=== PATIENT | female | born 1985 | race Caucasian/White ===

== ENCOUNTER 2018-06-05 14:37 | Outpatient (CLI) | payer OTHER, MEDICAID ==
[~2018-06-05] VITALS: Ht 158.8 cm; Wt 81.6 kg
[2018-06-05 15:00] VITALS: BP 116/76; Ht 158.8 cm; Wt 81.6 kg
== END 2018-06-05 17:00 | disposition home or self-care (01) ==
LOC: UNDOADMIN 14:37 → OB 14:37 → L&D 14:37 → OB 14:37 → L&D 17:00 → UNDODISIN 17:00 → EDSTATUS 06-19 08:47
PROVIDERS: ATTEND Obstetrics & Gynecology
DX: O47.1 False labor at or after 37 completed weeks of gestation (principal); Z3A.38 38 weeks gestation of pregnancy
CPT/HCPCS: 59025; 99213

== ENCOUNTER → 2018-06-05 | Outpatient (CLI) | payer OTHER, MEDICAID ==
[2017-03-04 14:50] VITALS: BMI 32.9
[~2018-06-05] MED LIST: ALB18R INH; CALC-515 PO; DIPH-741 PO; DOCU-416 PO; HYDR2TAB74 PO; IBUP800T37 PO; PANT20TA27 PO; PANT40TA65 PO; PREN-127 PO; PREN-148 PO; RANI-318 PO
--- NOTE | 2018-06-05 14:45 | RADIOLOGY IMAGING REPORT ---
FACILITY: [facility] PATIENT NAME: Elaine Manrique : 1985 MR: [id number] V: [id number] EXAM DATE: ORDERING PHYSICIAN: JOSE COELHO TECHNOLOGIST: Location: [facility] [place] Patient: Elaine Manrique : 1985 Visit/Account:[id number] Date of Sevice: 06/05/2018 EXAMINATION: Biophysical Profile COMPARISON: None. HISTORY: Decreased movement. AGE: 38 weeks 0 days FINDINGS: Standard transabdominal ultrasound for biophysical profile was performed. Presentation: Cephalic Placenta: Fundal and to the maternal right. heart rate: 120 bpm Amniotic fluid index: 13.3 cm Largest fluid pocket: 6.6 cm Biophysical profile: breathing movement: 2/2 Gross body movement: 0/2 tone: 2/2 Amniotic fluid volume: 2/2 Total score: 6/8 IMPRESSION: 1. Biophysical profile score: 6/8 2. Amniotic fluid index: 13.3 cm 3. heart rate: 120 bpm Results were discussed with JOSE COELHO at 06/05/2018 2:34 PM. Report Dictated By: Germain Frazier MD at 06/05/2018 2:30 PM Report E-Signed By: Germain Frazier MD at 06/05/2018 2:39 PM WSN:[id number]
== END ==
LOC: US 13:03
PROVIDERS: ATTEND Obstetrics & Gynecology
DX: O36.8130 Decreased fetal movements, third trimester, not applicable or unspecified (principal); Z3A.38 38 weeks gestation of pregnancy
CPT/HCPCS: 76819

== ENCOUNTER 2018-06-11 21:06 | Outpatient (CLI) | payer OTHER, MEDICAID ==
[~2018-06-11] VITALS: Ht 160 cm; Wt 81.6 kg
[2018-06-11] MEDS ORDERED: APAP/HYDROCODONE 325/5 TAB PO PRN (22:05)
[2018-06-12 00:38] VITALS: BP 116/69; Ht 160 cm; Wt 81.6 kg
== END 2018-06-11 23:25 | disposition home or self-care (01) ==
LOC: OB 21:06 → L&D 21:06 → UNDOADMOB 21:06 → L&D 23:25 → UNDODISOB 23:25 → EDSTATUS 06-17 07:50
PROVIDERS: ATTEND Student in an Organized Health Care Education/Training Program
DX: O47.1 False labor at or after 37 completed weeks of gestation (principal); Z3A.38 38 weeks gestation of pregnancy
CPT/HCPCS: 59025; 84112; 99213; G0378; G0379

== ENCOUNTER 2018-06-20 05:46 | Inpatient (IN) | payer OTHER, MEDICAID ==
[~2018-06-20] VITALS: Ht 160 cm; Wt 81.6 kg
[2018-06-20] MEDS ORDERED: FAMOTIDINE(*) 20MG/50ML PREMIX 50 ML IVPB PRN (05:47)
[2018-06-20] MEDS ORDERED: OXYTOCIN 30 UNIT/D5LR 500 ML 500 ML IV PRN ×2 (05:47→08:02)
[2018-06-20] MEDS ORDERED: LIDOCAINE 1% LOCAL 300 MG/30ML INJ PRN (05:50)
[2018-06-20] MEDS ORDERED: fentaNYL CITR 100 MCG/2 ML AMP IVP PRN (05:50)
[2018-06-20] MEDS ORDERED: METOCLOPRAMIDE 10 MG/2 ML SDV IVP PRN (05:50)
[2018-06-20] MEDS ORDERED: cefOXitin/DEX(*) 2GM/50ML PREM 50 ML IVPB PRN (05:50)
[2018-06-20] MEDS ORDERED: TERBUTALINE SULF 1 MG/ML VIAL SUBQ PRN (05:50)
[2018-06-20] MEDS ORDERED: LIDOCAINE/SOD BICARB 8.4% SYR SC PRN (05:50)
[2018-06-20] MEDS ORDERED: FLUSH 10 ML SYR IVP PRN (05:50)
[2018-06-20 06:07] VITALS: BP 111/73; Ht 160 cm; Wt 81.6 kg
[2018-06-20] MEDS: LR(*) 1000 ML BAG 1,000 ML IV PRN ×4 (06:33→20:05)
[2018-06-20 06:46] LABS: PLATELET COUNT, AUTOMATED 220 K/uL (150-450)
[2018-06-20] MEDS: DLR(*) 1000 ML BAG 1,000 ML IV SCH ×3 (06:47→21:47)
[2018-06-20] MEDS ORDERED: EPIDURAL KEYS XX PRN (10:35)
[2018-06-20] MEDS ORDERED: LIDOCAINE/PF 2% 200MG/10ML AMP 200 MG/10 ML AMPUL EPI PRN (10:35)
[2018-06-20] MEDS ORDERED: LIDO/EPI 2% MPF 1:200,000 20ML EPI PRN (10:35)
[2018-06-20] MEDS ORDERED: FENTANYL/ROPIVACAINE 100 ML BAG EPI PRN (10:35)
[2018-06-20] MEDS ORDERED: BUPIVACAINE 0.5% INJ 30ML VIAL EPI PRN (10:35)
[2018-06-20] MEDS ORDERED: BUPIVACAINE 0.25% MPF INJ EPI PRN (10:35)
--- NOTE | 2018-06-20 10:54 | History & Physical ---
History of Present Illness Age of Patient: 32 : 2 Para or TPAL: 1 EDC per LMP: Jun 19, 2018 Estimated Gestational Age: 39.6 Chief Complaint IOL History of Present Illness Presents for scheduled IOL elective at term with favorable cervix. had hydronephrosis which remained stable on f/u with normal growth and OBX consult was normal. GBS negative. Prior vaginal delivery uncomplicated. Past Medical, Surgical, Family and Obstetric Histories reviewed. Please see ACOG chart. History Allergies: Coded Allergies: almond (Verified Allergy, Intermediate, SWELLING, 04/02/18) Swelling of lips and tingling codeine (Verified Allergy, Intermediate, MIGRAINES, 02/19/17) rizatriptan (Verified Allergy, Intermediate, Halucinations, 04/02/18) Family History: FH: breast cancer PGMA FH: lymphoma PGPA Raynaud's syndrome MOTHER Scleroderma MOTHER Med Rec Home Meds Active Scripts Pantoprazole Sodium (PANTOPRAZOLE SODIUM) 20 Mg Tablet.dr, 1 TAB PO QDAY, #60 TAB.SR 3 Refills Prov:JOSE LO MD 04/23/18 Reported Medications Albuterol Sulfate (VENTOLIN HFA) 18 Gm Inh, 1-2 PUFF INH 3-4XD PRN for DYSPNEA, INH 04/02/18 Vit W-Ca,Fe,FA(<1 mg) ( Formula) 1 Each Tablet, 1 TAB PO QDAY 04/02/18 Review of Systems All Systems Reviewed/Normal: Yes, Except as Noted Exam General Exam Vital Signs Vital Signs Date Time Temp Pulse Resp B/P (MAP) Pulse Ox O2 Delivery O2 Flow Rate FiO2 06/20/18 06:07 98.4 92 16 111/73 (86) 93 Room Air General Apperance: Alert/Awake/No Acute Distress Neuro: No Gross deficits Eyes: Normal Extraocular Movement & Vison Cardiovascular: Regular Rate and Rhythm Respiratory: No Respiratory Distress Abdomen: Soft, Non-Tender, Non-Distended Extremities: No Cyanosis,Clubbing or Edema Integumentary: Skin Intact without Lesions or Rash Psychological: Alert & Oriented X3, Appropriate Mood & Affect Vaginal Discharge/Fluid?: Bloody Show Cervical Dialation: 4.5 Cervical Effacement (%): 90 Cervical Consistency: Soft Cervical Position: Mid Station: -2 Presentation: Vertex Uterine Contractions(Q min): 3 Uterine Contraction Strength: Moderate Fetus Heart Tone Variabilty: Moderate FHT Accelerations: 15X15 FHT Category: I Medical Decision Making Data Points Result Diagram: 06/20/18 0628 Assessment and Plan 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 Expecting . Pt desires epidural. KARUNA FERNANDO MD Jun 20, 2018 10:54
[2018-06-20] MEDS: fentaNYL CITR 100 MCG/2 ML AMP IT PRN (11:53)
[2018-06-20] MEDS ORDERED: ONDANSETRON 4 MG/2 ML VIAL IVP PRN (13:55)
--- NOTE | 2018-06-20 15:54 | Anesthesia OB Pre-Anes Eval ---
History of Present Illness Anesthesia Start Time: 11:54 OB Anesthesia Diagnosis: induction - elective EDC: Jun 19, 2018 : 2 Para: 1 Pain Ratin Heart Tones: 151 Result Diagram: 06/20/18 0628 Height (Inches): 63.00 Weight (Pounds): 180 BMI Calculated: 31.88 Past Medical History Medical History: no pertinent history Surgical History: cholecystectomy, tonsillectomy Previous Anesthesia: general, epidural Attended Childbirth Classes?: No Hx Anesthesia Reactions: No Hx Family Anesthesia Reaction: No Current Medications: pitocin Home Meds Active Scripts Pantoprazole Sodium (PANTOPRAZOLE SODIUM) 20 Mg Tablet.dr, 1 TAB PO QDAY, #60 TAB.SR 3 Refills Prov:JOSE LO MD 04/23/18 Reported Medications Albuterol Sulfate (VENTOLIN HFA) 18 Gm Inh, 1-2 PUFF INH 3-4XD PRN for DYSPNEA, INH 04/02/18 Vit W-Ca,Fe,FA(<1 mg) ( Formula) 1 Each Tablet, 1 TAB PO QDAY 04/02/18 Allergies: Coded Allergies: almond (Verified Allergy, Intermediate, SWELLING, 04/02/18) Swelling of lips and tingling codeine (Verified Allergy, Intermediate, MIGRAINES, 02/19/17) rizatriptan (Verified Allergy, Intermediate, Halucinations, 04/02/18) Anesthesia OB ROS Neurological: No migraines/headaches, No seizures, No neuropathy, No other ENT: Denies Tooth caps, Denies Loose teeth, Denies Chipped teeth, Denies Den tures, Denies Bridges, Denies Retainers, Denies Veneers, Denies Implants, Denies Tongue ring, Denies Other Pulmonary: No asthma, No smoker (pks/day/yrs), No other Airway Class: ll Cardiovascular ROS: No edema, No arrhythmia, No other GI ROS: clear liquids Last Solids Time: 08:00 ROS: No Herpes, No STD(s), No Liver Disease, No Renal Disease, No Other Endocrine ROS: No diabetes, No gestational diabetes, No thyroid disorder, No other Musculoskeletal ROS: No low back pain, No low back injury, No scoliosis, No other ASA Classification: 2 Assessment and Plan Anesthesia Plan: PHILOMENA KINENY CRNA Jun 20, 2018 15:54
--- NOTE | 2018-06-20 16:03 | Procedure Note ---
Anesthetic Placement Note Anesthesia Plan: LEB Permit for Anesthesia Signed: Yes Anesthesia Technique: Patient Sitting Anesthesia Prep: Betadine Interspace: L 3-4 Local Anesthetic: 1% Lidocaine Amount Local - cc's: 3 Anesthesia Attempts: 1 Loss of Resistance: Normal Saline Depth of CHUNG (cm): 6 Epidural Needle Placement: No CSF, No Blood, No Parasthesia Catheter Insertion (cm): 12 Catheter Type: Muse - Spring Wound Epidural Dressing: Tegaderm, Tape, Adhesive [place]idan Anesthesia Tray: Lot Number ([id number]), Expiration Date (2019-06-27), Reference Number ([id number]) Anesthesia Medications: Epidural Test Dose: 1.5 Lido/Epi (1:200,000), Dose - mL (3), Time (1221), Negative Epidural Loading Dose: 0.25% Marcaine, Dose - ml (10), Time (1227/1230) Epidural Infusion: 0.2% Ropivicaine, With Fentanyl 2mcg/ml, Start Time: (1234) Epidural Pump Setting: Bolus Dose - mL (5), Lockout - Minutes (15), Maintenance Rate - mL/hr (10), Maximum per Hour - mL (30) Complications: None PHILOMENA SILVA CRNA Jun 20, 2018 16:03
--- NOTE | 2018-06-20 16:04 | Anesthesia Progress Note ---
Progress/Maintenance Anesthesia Note Time: 13:41 Pain Intensity: 0 Pump Rate (ML/HR): 6 Dilatation: 4 PHILOMENA SILVA CRNA Jun 20, 2018 16:04
--- NOTE | 2018-06-20 16:05 | Anesthesia Progress Note ---
Progress/Maintenance Anesthesia Note Time: 14:10 Pain Intensity: 1 Pump: On Pump Rate (ML/HR): 4 Dilatation: 4 Position: Right, Tilt PHILOMENA SILVA CRNA Jun 20, 2018 16:05
--- NOTE | 2018-06-20 16:25 | Anesthesia Progress Note ---
Progress/Maintenance Anesthesia Note Date: Jun 20, 2018 Anesthesia Note Time: 16:00 Pain Intensity: 0 Pump: On Pump Rate (ML/HR): 1 Sensory Level: T-4 Motor Level: Other (rt leg heavier than left) Dilatation: 7 Assessment and Plan Assessment Assumed care at 1600. Pt.'s epidural level at T-4. Pump decreased to 1 ml/hr til pt. feels contractions again. Dr. Singh called in to nurses station and requested pt. be given 10mg ephedrine and O2. Pt. already using O2 per mask at 10l/m. NICOLAS KEEN CRNA Jun 20, 2018 16:24
--- NOTE | 2018-06-20 17:47 | Anesthesia Progress Note ---
Progress/Maintenance Anesthesia Note Date: Jun 20, 2018 Anesthesia Note Time: 17:40 Pain Intensity: 5 Pump: On Pump Rate (ML/HR): 5 Motor Level: Bending Knees-Bilateral Dilatation: 8 Position: Left, Tilt Drug Bolus: 0.5% Marcaine, Other (Fentenyl 50 mcgs) Assessment and Plan Assessment Bolus of 5 ml per epidural pump as pt. is starting to feel contractions again. Pump rate at 5 ml/hr. NICOLAS KEEN CRNA Jun 20, 2018 17:47
[2018-06-20] MEDS ORDERED: MISOPROSTOL 200 MCG TAB ONE (17:59)
[2018-06-20] MEDS ORDERED: NS(*) 0.9% 1000 ML BAG 0 ML ONE (17:59)
[2018-06-20] MEDS ORDERED: METHYLERGONOVINE MAL 0.2MG/ML ONE (17:59)
[2018-06-20] MEDS ORDERED: CARBOPROST TROMETHAM 250MCG/ML IM ONLY ONE (17:59)
[2018-06-20] MEDS ORDERED: OXYTOCIN 30 UNIT/D5LR 500 ML 0 ML ONE (17:59)
--- NOTE | 2018-06-20 18:44 | Labor Progress Note ---
Labor Subjective Progress Notes Subjective Has progressed to 8-9 cm but has not descended into the pelvis very well. Periods of decreased variability and early decelerations currently. Labor Objective Vital Signs Vital Signs Date Time Temp Pulse Resp B/P (MAP) Pulse Ox O2 Delivery O2 Flow Rate FiO2 06/20/18 06:07 98.4 92 16 111/73 (86) 93 Room Air Vaginal Discharge/Fluid?: Bloody Show Cervical Dialation: 8.5 Cervical Effacement (%): 100 Station: -1 Presentation: Vertex (ROP) Fetus Heart Tone Variabilty: Minimal FHT Decelerations: Early, Prolonged (occasional) FHT Category: II Other Result Diagram: 06/20/18 0628 Assessment and Plan Problems: (1) 39 weeks gestation of Assessment & Plan: Reviewed physical findings with pt and spouse. There was a sluggish response to scalp stimulation but considering OP and high station, it is concerning for CPD. Recommended position changes aggressively and monitor closely. If loss of variability worsens or late decelerations develop, recommend abdominal delivery. KARUNA FERNANDO MD Jun 20, 2018 18:44
--- NOTE | 2018-06-20 19:47 | Anesthesia Progress Note ---
Progress/Maintenance Anesthesia Note Date: Jun 20, 2018 Anesthesia Note Time: 19:30 Pain Intensity: 5 Pump: On Pump Rate (ML/HR): 6 Sensory Level: T-12 Motor Level: Bending Knees-Bilateral Dilatation: 9 Position: Right, Tilt Drug Bolus: 0.5% Marcaine (5 ml), Other (50 mcgs) Assessment and Plan Assessment: Pt. feeling contractions and rate them as "5". Bolus given so pt. can "labor down". NICOLAS KEEN CRNA Jun 20, 2018 19:47
--- NOTE | 2018-06-20 21:14 | Anesthesia Progress Note ---
Progress/Maintenance Anesthesia Note Date: Jun 20, 2018 Anesthesia Note Time: 21:00 Pain Intensity: 0 Pump: Off Motor Level: Bending Knees-Bilateral Dilatation: 10 Position: Semi-Fowlers Drug Bolus: 0.5% Marcaine (5 ml given just prior to delivery) Assessment and Plan Assessment Able to push well and had excellent tolerance of delivery and repair work. Empty syringe attached to epidural catheter and RN agrees to remove with ambulation.Patient instructed the first ambulation is to be with help of nursing staff. Instructed to preform deep knee bends at bedside before walking. Anesthesia Stop Day: Jun 20, 2018 Anesthesia Stop Time: 21:00 NICOLAS KEEN CRNA Jun 20, 2018 21:14
[2018-06-20] MEDS ORDERED: ACETAMINOPHEN 325 MG TAB PO PRN (21:15)
[2018-06-20] MEDS ORDERED: HYDROCORTISONE 2.5% CR 30GM TB PR PRN (21:15)
[2018-06-20] MEDS ORDERED: APAP/HYDROCODONE 325/5 TAB PO PRN (21:15)
[2018-06-20] MEDS ORDERED: INFLUENZA VIRUS VAC 0.5 ML SYR IM ONLY ONE (21:15)
[2018-06-20] MEDS ORDERED: MAGNESIUM HYDROXIDE* 30ML UDCP PO PRN (21:15)
[2018-06-20] MEDS ORDERED: LANOLIN OINT 7 GM TUBE TP PRN (21:15)
--- NOTE | 2018-06-20 21:20 | OB Delivery Note ---
Delivery Note Vaginal Delivery Type: Spont. Vaginal Delivery Delivery Date: Jun 20, 2018 Delivery Time: 20:57 Estimated Gestational Age(wks): 40 Delivery Anesthesia: Epidural Infant Sex: Female Repair Needed: Laceration, 2nd Degree Estimated Blood Loss: 200 Delivery Complications: Laceration Notes: Presented for IOL this morning, 3 cm dilated. Pitocin induction and 6 cm by 1314, 7 cm [id number]. Once 8 cm there became evident lack of descent. heart tracing was category 2 frequently with episodes of decelerations but recovery a nd responded to position changes and interventions. Ultimately was found to be in OP presentation but with position changes and patience, this resolved. Complete at 1942 and allowed to labor down. Delivery in JAVIER position over second degree laceration. Placenta spontaneous and intact. Repair with 2-0 chromic without complication. Aerophysicist in Attendence: No Copies to: KARUNA FERNANDO MD ; KARUNA FERNANDO MD Jun 20, 2018 21:20
[2018-06-20] MEDS: GLYCERIN/WITCH HAZEL LEAF 1 PK TOP PRN (23:46)
[2018-06-20] MEDS: BENZOCAINE 20% 60 ML BTL TP PRN (23:46)
[2018-06-21] MEDS ORDERED: IBUPROFEN 800 MG TAB PO SCH (01:00)
[2018-06-21] MEDS ORDERED: LR(*) 1000 ML BAG 1,000 ML ONE (01:27)
[2018-06-21 03:04] VITALS: BP 111/58
[2018-06-21] MEDS: DOCUSATE CALCIUM 240 MG CAP PO SCH ×2 (08:00→21:01)
[2018-06-21] MEDS: IBUPROFEN 800 MG TAB PO SCH ×3 (08:00→23:31)
[2018-06-21 08:05] VITALS: BP 104/55
[2018-06-21] MEDS ORDERED: MEASLES,MUMP,RUBELLA VAC 0.5ML SUBQ ONE (10:00)
[2018-06-21] MEDS ORDERED: DIPHTH/TETANUS/ACEL. PERTUSSIS IM ONLY ONE (10:00)
--- NOTE | 2018-06-21 11:41 | OB/GYN Progress Note ---
OB Subjective Progress Notes Subjective Doing well. Pain controlled and ambulating to BR well. Voiding well. GI: NEG Nausea : Voiding Well Pain: Mild OB Objective Physical Exam Vital Signs Date Time Temp Pulse Resp B/P (MAP) Pulse Ox O2 Delivery O2 Flow Rate FiO2 06/21/18 08:05 98.3 83 16 104/55 (71) 93 Room Air Intake and Output 06/21/18 07:00 Intake Total 5600 ml Output Total 3450 ml Balance 2150 ml Intake Oral 1000 ml IV Total 4600 ml Output Urine Total 3450 ml # Voids 1 General Appearance: Alert/Awake/No Acute Distress Neurological: No Gross deficits Eyes: Normal Extraocular Movement & Vison Respiratory: No Respiratory Distress Extremities: No Cyanosis,Clubbing or Edema Integumentary: Skin Intact without Lesions or Rash Psychological: Alert & Oriented X3, Appropriate Mood & Affect Result Diagram: 06/21/18 0546 Assessment and Plan 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
[2018-06-21 11:52] VITALS: BP 100/54
[2018-06-21 15:29] VITALS: BP 109/64
[2018-06-21 19:00] VITALS: BP 112/71
[2018-06-21 23:30] VITALS: BP 118/69
[2018-06-22 03:18] VITALS: BP 114/64
[2018-06-22] MEDS: DOCUSATE CALCIUM 240 MG CAP PO SCH ×2 (08:28→16:04)
[2018-06-22] MEDS: IBUPROFEN 800 MG TAB PO SCH ×2 (08:28→16:04)
--- NOTE | 2018-06-22 10:01 | Anesthesia Post Eval Note ---
Anesthesia Post Eval Note Vital Signs Date Time Temp Pulse Resp B/P (MAP) Pulse Ox O2 Delivery O2 Flow Rate FiO2 06/22/18 03:18 98.1 82 16 114/64 (81) 90 Room Air Pt able to participate in Eval: Yes Cardiovascular Status: Satisfactory Respiratory Status: Satisfactory Pain Managment: Satisfactory PO Nausea/Vomiting: Satisfactory Temperature Management: Satisfactory Mental Status: Satisfactory, Alert, Oriented X3 Post-Op Hydration Status: Satisfactory, Tolerating PO Well, Voiding w/o Difficulty Anesthesia Type: LEB Anesthesia Tolerance: Tolerated procedure well without apparent anesthetic complications. LP site clear, no redness or edema. Denies headache or any residual paresthesia. Vital Signs Stable, Patient comfortable and condition stable. NICOLAS KEEN CRNA Jun 22, 2018 10:01
[2018-06-22 10:10] VITALS: BP 120/75
--- NOTE | 2018-06-22 11:32 | OB/GYN Progress Note ---
OB Subjective Progress Notes Subjective Doing well. Sleeping this morning. No problems. GI: NEG Nausea : Voiding Well Pain: Mild OB Objective Physical Exam Vital Signs Date Time Temp Pulse Resp B/P (MAP) Pulse Ox O2 Delivery O2 Flow Rate FiO2 06/22/18 10:10 98.9 82 18 120/75 (90) Room Air 06/22/18 03:18 90 Intake and Output 06/22/18 07:00 Intake Total 360 ml Balance 360 ml Intake Oral 360 ml General Appearance: Alert/Awake/No Acute Distress Neurological: No Gross deficits Eyes: Normal Extraocular Movement & Vison Cardiovascular: Normal Rhythm & Peripheral Pulses Respiratory: No Respiratory Distress Abdomen: Soft, Non-Tender, Non-Distended, Fundus Firm, Non-Tender Extremities: No Cyanosis,Clubbing or Edema Integumentary: Skin Intact without Lesions or Rash Psychological: Alert & Oriented X3, Appropriate Mood & Affect Result Diagram: 06/21/18 0546 Assessment and Plan LEAD 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
[2018-06-22] MEDS ORDERED: IBUP800T37 PO (11:34)
--- NOTE | 2018-06-22 11:37 | OB/GYN Discharge Summary ---
Discharge Summary Reason for Hosp/Final Diag: (1) 39 weeks gestation of (2) care and examination immediately after delivery Lates Vital Signs Vital Signs Date Time Temp Pulse Resp B/P (MAP) Pulse Ox O2 Delivery O2 Flow Rate FiO2 06/22/18 10:10 98.9 82 18 120/75 (90) Room Air 06/22/18 03:18 90 Weight (Pounds): 180 Result Diagram: 06/21/18 0546 Condition: Improved Discharge: Home, Self Mcfp Meds Active Scripts Pantoprazole Sodium (PANTOPRAZOLE SODIUM) 20 Mg Tablet.dr, 1 TAB PO QDAY, #60 TAB.SR 3 Refills Prov:JOSE LO MD 04/23/18 Reported Medications Albuterol Sulfate (VENTOLIN HFA) 18 Gm Inh, 1-2 PUFF INH 3-4XD PRN for DYSPNEA, INH 04/02/18 Vit W-Ca,Fe,FA(<1 mg) ( Formula) 1 Each Tablet, 1 TAB PO QDAY 04/02/18 Follow up Referrals: [employer] - In 6 Weeks @ [facility] with KARUNA FERNANDO MD Follow up with: Dr. Fernando [phone] Follow up in: 6 wks PP or PO Discharge Diet: As Tolerates Discharge Activity: As Tolerates, No Heavy Lifting x 6 wks, No Heavy Lifting > 10lb, Pelvic Rest Copies to: KARUNA FERNANDO MD ; KARUNA FERNANDO MD Jun 22, 2018 11:37
[2018-06-22] MEDS: BENZOCAINE 20% 60 ML BTL TP PRN (14:00)
[2018-06-22] MEDS: GLYCERIN/WITCH HAZEL LEAF 1 PK TOP PRN (14:00)
== END 2018-06-22 16:35 | disposition home or self-care (01) | DRG 775 ==
LOC: OB 05:46
PROVIDERS: ADMIT Obstetrics & Gynecology; ATTEND Obstetrics & Gynecology
PROC: 10E0XZZ Delivery of Products of Conception, External Approach (ICD-10-PCS; principal; 2018-06-20)
PROC: 0KQM0ZZ Repair Perineum Muscle, Open Approach (ICD-10-PCS; 2018-06-20)
DX: O35.8XX0 Maternal care for other (suspected) fetal abnormality and damage, not applicable or unspecified (principal); O70.1 Second degree perineal laceration during delivery; O76 Abnormality in fetal heart rate and rhythm complicating labor and delivery; Z3A.40 40 weeks gestation of pregnancy; Z37.0 Single live birth; Z90.49 Acquired absence of other specified parts of digestive tract
CPT/HCPCS: 36415; 85025; 85027; 86850; 86900; 86901; J2405; J2590; J3010; J7120; S0020

== ENCOUNTER 2018-09-25 20:26 | Emergency (ER) | payer MEDICAID, OTHER ==
[2018-06-20 06:07] VITALS: Wt 72.6 kg
[~2018-09-25 20:26] MED LIST changes: +FLU60SYR36 IM
--- NOTE | 2018-09-25 20:29 | ER Report ---
History and Physical Time Seen By MD: 20:30 HPI/ROS CHIEF COMPLAINT: Esophageal food bolus stuck HISTORY OF PRESENT ILLNESS: This is a 33-year-old female. She was eating steak tonight. A piece stuck in her mid esophagus. Having to spit saliva and occasional vomiting. She has had this happen in the past and does have an appointment to see Dr. Lo in the near future. She is not short of breath. Allergies: Coded Allergies: almond (Verified Allergy, Intermediate, SWELLING, 09/25/18) Swelling of lips and tingling codeine (Verified Allergy, Intermediate, MIGRAINES, 09/25/18) rizatriptan (Verified Allergy, Intermediate, Halucinations, 09/25/18) Home Meds Active Scripts Pantoprazole Sodium (PANTOPRAZOLE SODIUM) 20 Mg Tablet.dr, 1 TAB PO QDAY, #60 TAB.SR 3 Refills Prov:JOSE LO MD 04/23/18 Reported Medications Albuterol Sulfate (VENTOLIN HFA) 18 Gm Inh, 1-2 PUFF INH 3-4XD PRN for DYSPNEA, INH 04/02/18 Vit W-Ca,Fe,FA(<1 mg) ( Formula) 1 Each Tablet, 1 TAB PO QDAY 04/02/18 Discontinued Scripts Ibuprofen (IBUPROFEN) 800 Mg Tablet, 800 MG PO Q8H PRN for PAIN, #30 TAB 0 Refills Prov:KARUNA FERNANDO MD 06/22/18 Reviewed Nurses Notes: Yes Hx Smoking: No Smoking Status: Never Smoker Exposure to Second Hand Smoke?: No Constitutional Vital Sign - Last 24 Hours 09/25/18 09/25/18 09/25/18 09/25/18 20:32 20:33 20:41 20:56 Temp 98.6 Pulse 114 108 110 Resp 14 B/P (MAP) 145/104 121/100 (107) Pulse Ox 94 94 94 O2 Delivery Room Air 09/25/18 09/25/18 09/25/18 09/25/18 21:11 21:19 21:26 21:30 Pulse 98 103 B/P (MAP) 118/92 (101) 131/95 (107) Pulse Ox 94 93 09/25/18 09/25/18 09/25/18 09/25/18 21:41 21:46 22:00 22:01 Pulse 113 112 109 B/P (MAP) 126/106 (113) Pulse Ox 94 94 95 09/25/18 09/25/18 09/25/18 09/25/18 22:16 22:30 22:31 22:46 Pulse 122 104 104 B/P (MAP) 116/95 (102) Pulse Ox 93 93 93 09/25/18 09/25/18 09/25/18 23:00 23:01 23:06 Pulse 109 106 B/P (MAP) 133/100 (111) Pulse Ox 91 91 Intake and Output 09/25/18 09/25/18 09/26/18 14:58 22:58 06:58 Intake Total 1000 ml Balance 1000 ml Physical Exam Gen.: Alert, she is having mild distress because the ongoing spitting and occasional vomiting. ENT: Normal Chest: Breathing easily, clear Cardiovascular: Regular rate and rhythm. Medical Decision Making ED Course/Re-evaluation Clinical Indication for ER IV: IV Access ED Course IV was started, glucagon given. She had a little bit of improvement feeling like the steak went down a little bit further and her soft guests, but still having some problems. Later tried 2 mg of IV Valium, also unsuccessful. Discussed options. She would prefer not to transfer to [facility] but instead would like to return home and wait and see if she get in with Dr. Esparza later on in the morning. Decision to Disposition Date: Sep 25, 2018 Decision to Disposition Time: 22:59 Depart Departure Latest Vital Signs Vital Signs Date Time Temp Pulse Resp B/P (MAP) Pulse Ox O2 Delivery O2 Flow Rate FiO2 09/25/18 23:06 106 91 09/25/18 23:00 133/100 (111) 09/25/18 20:32 98.6 14 Room Air Impression: Primary Impression: Esophageal obstruction due to food impaction Condition: Improved Disposition: HOME OR SELF-CARE Referrals: KARUNA FERNANDO MD (PCP) Patient Instructions: Esophageal Foreign Body (ED) Additional Instructions: Call Dr. Lo's office in the morning as we discussed. We do not have his schedule, so do not know if he will be available or not. You can return here to the ER as needed. We would likely need to transfer you to [place] or [place] for treatment. You can also go to [place] or [place] [facility] to the ER if not improving. PANDA FONSECA MD Sep 25, 2018 20:29
[2018-09-25] MEDS ORDERED: NS(*) 0.9% 1000 ML BAG 1,000 ML IV ONE (20:40)
[2018-09-25] MEDS ORDERED: GLUCAGON 1 MG KIT IV ONE (20:40)
[2018-09-25] MEDS ORDERED: DIAZEPAM 50 MG/10 ML MDV IVP ONE (21:50)
[2018-09-25 23:00] VITALS: BP 133/100
== END 2018-09-25 23:16 | disposition home or self-care (01) ==
LOC: ER 21:22
DX: T18.128A Food in esophagus causing other injury, initial encounter (principal)
CPT/HCPCS: 96361; 96374; 99283; J1610; J3360; J7030

== ENCOUNTER → 2018-09-26 | Day surgery (SDC) | payer OTHER, MEDICAID ==
[2018-06-20 06:07] VITALS: BMI 31.9
[2018-09-26] VITALS (8 sets, daily range): BP systolic 91–122; BP diastolic 58–85
[~2018-09-26] MED LIST changes: +FAMOTIDINE(*) 20MG/50ML PREMIX 50 ML IVPB ONE; +NORMOSOL R SOLN(*) 1000 ML BAG 1,000 ML IV ONE; +NS(*) 0.9% 1000 ML BAG 1,000 ML IV ONE; +ONDANSETRON 4 MG/2 ML VIAL IVP ONE
--- NOTE | 2018-09-26 09:34 | ER Report ---
History and Physical Time Seen By MD: 09:35 Hx. of Stated Complaint: PATIENT REPORTS THAT SHE WAS HERE LAST NIGHT FOR SAME COMPLAINT AND IS UNABLE TO SWALLOW AND FOOD OR LIQUIDS. SHE REPORTS THAT THE OBSTRUCTION FEELS LIKE IT IS GOING FURTHER DOWN HER THROAT BUT IS STILL THERE HPI/ROS Is a 33-year-old otherwise healthy female who presents to the emergency department for the 2nd time in 12 hours complaining of an esophageal food impaction. She was treated with conservative therapy last night with glucagon, Valium, and a soda. She returns this morning stating that the steak may have moved distally somewhat, but is still impacted. She is unable to eat or drink. She is able to tolerate some secretions but not all. She's had a previous food impaction. She was supposed to undergo therapeutic endoscopy with Dr. Esparza, that became . She does have an appointment for a consult for therapeutic endoscopy in September. Allergies: Coded Allergies: almond (Verified Allergy, Intermediate, SWELLING, 09/25/18) Swelling of lips and tingling codeine (Verified Allergy, Intermediate, MIGRAINES, 09/25/18) rizatriptan (Verified Allergy, Intermediate, Halucinations, 09/25/18) Home Meds Active Scripts Pantoprazole Sodium (PANTOPRAZOLE SODIUM) 20 Mg Tablet., 1 TAB PO QDAY, #60 TAB.SR 3 Refills Prov:JOSE LO MD 04/23/18 Reported Medications Albuterol Sulfate (VENTOLIN HFA) 18 Gm Inh, 1-2 PUFF INH 3-4XD PRN for DYSPNEA, INH 04/02/18 Vit W-Ca,Fe,FA(<1 mg) ( Formula) 1 Each Tablet, 1 TAB PO QDAY 04/02/18 Discontinued Scripts Ibuprofen (IBUPROFEN) 800 Mg Tablet, 800 MG PO Q8H PRN for PAIN, #30 TAB 0 Refills Prov:KARUNA FERNANDO MD 06/22/18 Reviewed Nurses Notes: Yes Old Medical Records Reviewed: Yes Hx Smoking: No Smoking Status: Never Smoker Exposure to Second Hand Smoke?: No Hx Substance Use Disorder: No Hx Alcohol Use: No Constitutional Vital Sign - Last 24 Hours 09/26/18 09:12 Temp 97.7 Pulse 94 Resp 20 B/P (MAP) 125/91 Pulse Ox 91 Physical Exam General Appearance: The patient is alert, has no immediate need for airway protection and no current signs of toxicity. Eyes: Pupils equal and round no injection. Respiratory: Chest is non tender, lungs are clear to auscultation. Cardiac: regular rate and rhythm Gastrointestinal: Abdomen is soft and non tender, no masses, bowel sounds normal. Neck: Neck is supple and non tender. Extremities have full range of motion and are non tender. DIFFERENTIAL DIAGNOSIS: After history and physical exam differential diagnosis was considered for food impaction, aspiration, esophageal perforation Medical Decision Making Data Points Result Diagram: 09/26/18 0952 09/26/18 0952 Laboratory Hematology Test 09/26/18 09:52 09/26/18 10:13 Red Blood Count 5.09 M/uL (4.17-5.56) Mean Corpuscular Volume 90.8 fL (80.0-96.0) Mean Corpuscular Hemoglobin 31.1 pg (26.0-33.0) Mean Corpuscular Hemoglobin Concent 34.2 g/dL (32.0-36.0) Red Cell Distribution Width 13.2 % (11.5-14.5) Mean Platelet Volume 8.1 fL (7.2-11.1) Neutrophils (%) (Auto) % (39.4-72.5) Lymphocytes (%) (Auto) % (17.6-49.6) Monocytes (%) (Auto) % (4.1-12.4) Eosinophils (%) (Auto) % (0.4-6.7) Basophils (%) (Auto) % (0.3-1.4) Nucleated RBC Relative Count (auto) /100WBC Neutrophils # (Auto) K/uL (2.0-7.4) Lymphocytes # (Auto) K/uL (1.3-3.6) Monocytes # (Auto) K/uL (0.3-1.0) Eosinophils # (Auto) K/uL (0.0-0.5) Basophils # (Auto) K/uL (0.0-0.1) Nucleated RBC Absolute Count (auto) K/uL Neutrophils % (Manual) 57 % (39.4-72.5) Band Neutrophils % % Lymphocytes % (Manual) 23 % (17.6-49.6) Atypical Lymphocytes % % Monocytes % (Manual) 6 % (4.1-12.4) Eosinophils % (Manual) 13 % (0.4-6.7) Basophils % (Manual) 1 % (0.3-1.4) Metamyelocytes % % Myelocytes % % Promyelocytes % % Platelet Estimate Normal Sodium Level 144 mmol/L (137-145) Potassium Level 4.0 mmol/L (3.5-5.0) Chloride Level 110 mmol/L (98-107) Carbon Dioxide Level 22 mmol/L (22-31) Blood Urea Nitrogen 17 mg/dl (7-18) Creatinine 0.80 mg/dl (0.52-1.04) Glomerular Filtration Rate Calc > 60.0 Random Glucose 92 mg/dl (75-110) Calcium Level 9.4 mg/dl (8.4-10.2) Total Bilirubin 0.6 mg/dl (0.2-1.3) Aspartate Amino Transf (AST/SGOT) 19 U/L (0-35) Alanine Aminotransferase (ALT/SGPT) 31 U/L (0-56) Alkaline Phosphatase 74 U/L (0-126) Total Protein 8.1 g/dl (6.3-8.2) Albumin 4.6 g/dl (3.5-5.0) Urine HCG, Qualitative Negative (NEGATIVE) Chemistry Test 09/26/18 09:52 09/26/18 10:13 White Blood Count 9.0 k/uL (4.5-11.0) Red Blood Count 5.09 M/uL (4.17-5.56) Hemoglobin 15.8 g/dL (12.0-16.0) Hematocrit 46.2 % (34.0-47.0) Mean Corpuscular Volume 90.8 fL (80.0-96.0) Mean Corpuscular Hemoglobin 31.1 pg (26.0-33.0) Mean Corpuscular Hemoglobin Concent 34.2 g/dL (32.0-36.0) Red Cell Distribution Width 13.2 % (11.5-14.5) Platelet Count 301 K/uL (150-450) Mean Platelet Volume 8.1 fL (7.2-11.1) Neutrophils (%) (Auto) % (39.4-72.5) Lymphocytes (%) (Auto) % (17.6-49.6) Monocytes (%) (Auto) % (4.1-12.4) Eosinophils (%) (Auto) % (0.4-6.7) Basophils (%) (Auto) % (0.3-1.4) Nucleated RBC Relative Count (auto) /100WBC Neutrophils # (Auto) K/uL (2.0-7.4) Lymphocytes # (Auto) K/uL (1.3-3.6) Monocytes # (Auto) K/uL (0.3-1.0) Eosinophils # (Auto) K/uL (0.0-0.5) Basophils # (Auto) K/uL (0.0-0.1) Nucleated RBC Absolute Count (auto) K/uL Neutrophils % (Manual) 57 % (39.4-72.5) Band Neutrophils % % Lymphocytes % (Manual) 23 % (17.6-49.6) Atypical Lymphocytes % % Monocytes % (Manual) 6 % (4.1-12.4) Eosinophils % (Manual) 13 % (0.4-6.7) Basophils % (Manual) 1 % (0.3-1.4) Metamyelocytes % % Myelocytes % % Promyelocytes % % Platelet Estimate Normal Glomerular Filtration Rate Calc > 60.0 Calcium Level 9.4 mg/dl (8.4-10.2) Total Bilirubin 0.6 mg/dl (0.2-1.3) Aspartate Amino Transf (AST/SGOT) 19 U/L (0-35) Alanine Aminotransferase (ALT/SGPT) 31 U/L (0-56) Alkaline Phosphatase 74 U/L (0-126) Total Protein 8.1 g/dl (6.3-8.2) Albumin 4.6 g/dl (3.5-5.0) Urine HCG, Qualitative Negative (NEGATIVE) Urinalysis Test 09/26/18 10:13 Urine HCG, Qualitative Negative (NEGATIVE) ED Course/Re-evaluation ED Course Food impaction likely secondary to distal esophagus disease. Patient will have an endoscopy to have food removed. Dr. Reza is in the ED discussing the p rocedure with the patient. She Will go to the OR for endoscopy. Decision to Disposition Date: Sep 26, 2018 Decision to Disposition Time: 10:40 Depart Departure Latest Vital Signs Vital Signs Date Time Temp Pulse Resp B/P (MAP) Pulse Ox O2 Delivery O2 Flow Rate FiO2 11/30/18 09:12 97.7 94 20 125/91 91 Impression: Primary Impression: Esophageal obstruction due to food impaction Condition: Improved Disposition: ADMIT FROM ER TO OR Referrals: KARUNA FERNANDO MD (PCP) SHARAN POSADA MD Sep 26, 2018 09:34
[2018-09-26 10:05] LABS: PLATELET COUNT, AUTOMATED 301 K/uL (150-450)
--- NOTE | 2018-09-26 10:14 | RADIOLOGY IMAGING REPORT ---
FACILITY: [facility] - [place] PATIENT NAME: Elaine Manrique : 1985 MR: [id number] V: [id number] EXAM DATE: ORDERING PHYSICIAN: SHARAN POSADA TECHNOLOGIST: Location: [facility] - [place] Patient: Elaine Manrique : 1985 Visit/Account:[id number] Date of Sevice: 09/26/2018 Exam type: NECK SOFT TISSUE History: food impaction Comparison: None. Findings: AP and lateral soft tissue views of the neck demonstrate no evidence of radiopaque foreign bodies wit hin the upper airway. There is no evidence of prevertebral soft tissue swelling. No subcutaneous em physema identified IMPRESSION: 1. Unremarkable AP and lateral soft tissues of the neck. If a retained foreign body related to food impaction remains of clinical concern an esophagram is recommended Report Dictated By: Rivka Holt MD at 09/26/2018 10:08 AM Report E-Signed By: Rivka Holt MD at 09/26/2018 10:10 AM WSN:[email or web address]
--- NOTE | 2018-09-26 10:16 | RADIOLOGY IMAGING REPORT ---
FACILITY: [facility] - [place] PATIENT NAME: Elaine Manrique : 1985 MR: [id number] V: [id number] EXAM DATE: ORDERING PHYSICIAN: SHARAN POSADA TECHNOLOGIST: Location: [facility] - [place] Patient: Elaine Manrique : 1985 Visit/Account:[id number] Date of Sevice: 09/26/2018 Exam type: CHEST SINGLE AP History: food impaction Comparison: None. Findings: The lungs are free of acute effusions, infiltrates or edema. There is no evidence of a pneumothorax or pneumomediastinum. Radiopaque foreign body is not identified along the course of the esophagus. The cardiac silhouette is normal in size. There are surgical clips the right upper quadrant abdomen. IMPRESSION: 1. No acute cardiac pulmonary process is seen. If a retained foreign body from food impaction remai ns of strong clinical concern an esophagram is recommended Report Dictated By: Rivka Holt MD at 09/26/2018 10:10 AM Report E-Signed By: Rivka Holt MD at 09/26/2018 10:11 AM WSN:[email or web address]
--- NOTE | 2018-09-26 10:56 | Gen Surgery History & Physical ---
History of Present Illness Chief Complaint Esophageal Impaction History of Present Illness Ms. Manrique is a 33-year-old female who presents to the emergency department for the 2nd time in 12 hours complaining of an esophageal food impaction. She was treated with conservative therapy last night with glucagon, Valium, and a soda. She did not have resolution of symptoms but was discharged to home. She returns this morning stating that the steak may have moved distally somewhat, but is still impacted. She is unable to eat or drink. She is able to tolerate some secretions but not all. She's had a previous food impaction and is scheduled 10/09 to follow-up for evaluation of a suspected esophageal stricture. History Problems: (1) Asthma, exercise induced Status: Chronic (2) Esophageal obstruction due to food impaction Onset Date: ~ 09/26/2018 Status: Acute Home Meds Active Scripts Pantoprazole Sodium (PANTOPRAZOLE SODIUM) 20 Mg Tablet.dr, 1 TAB PO QDAY, #60 TAB.SR 3 Refills Prov:JOSE LO MD 04/23/18 Reported Medications Albuterol Sulfate (VENTOLIN HFA) 18 Gm Inh, 1-2 PUFF INH 3-4XD PRN for DYSPNEA, INH 04/02/18 Vit W-Ca,Fe,FA(<1 mg) ( Formula) 1 Each Tablet, 1 TAB PO QDAY 04/02/18 Discontinued Scripts Ibuprofen (IBUPROFEN) 800 Mg Tablet, 800 MG PO Q8H PRN for PAIN, #30 TAB 0 Refills Prov:KARUNA FERNANDO MD 06/22/18 Allergies: Coded Allergies: almond (Verified Allergy, Intermediate, SWELLING, 09/25/18) Swelling of lips and tingling codeine (Verified Allergy, Intermediate, MIGRAINES, 09/25/18) rizatriptan (Verified Allergy, Intermediate, Halucinations, 09/25/18) Patient History: FH: breast cancer PGMA FH: lymphoma PGPA Raynaud's syndrome MOTHER Scleroderma MOTHER Review of Systems Constitutional: No Fever, No Weight Loss, No Weight Gain, No Chills, No Night Sweats, No Other Neurological: No Syncope, No Confusion, No Weakness, No Dizziness, No Slurred Speech, No Other Eyes: No Vision Change, No Loss of Vision, No Photophobia, No Other ENT: No Hearing Loss, No Sinus Congestion, No Sore Throat, No Ear Ache, No Tinnitus, No Other Cardiovascular: No Chest Pain, No Palpitations, No Orthostatic Hypotension, No Other Respiratory: Other (Albuterol only with exercise - infrequent) Gastrointestinal: No Nausea, No Vomiting, No Diarrhea; Dysphagia (see HPI); No Constipation, No Early Satiety, No Hematemesis, No Hematochezia, No Melena, No Abdominal Pain, No Other Genitourinary: No Dysuria, No Hematuria, No Urinary Incontinence, No Other Musculoskeletal: No Pain, No Sprain, No Strain, No Impaired Mobility, No Other Psychiatric: No Depression, No Anxiety, No Other Exam General Appearance: Alert, Awake, No Acute Distress Neuro: No Gross deficits Eyes: PERRLA ENT: Normal Neck: No Masses Cardiovascular: Normal Rhythm & Peripheral Pulses Respiratory: No Respiratory Distress GI: Abd Soft and Non-Tender Musculoskeletal: No Weakness/Pain Extremities: Warm Integumentary: Skin Intact without Lesion / Mass Psych: Alert & Oriented X3, Appropriate Mood & Affect Medical Decision Making Data Points Result Diagram: 09/26/1852 09/26/1852 Assessment and Plan Problems: (1) Esophageal obstruction due to food impaction Onset Date: ~ 09/26/2018 Status: Acute Assessment & Plan: Ms. Manrique has an impaction of steak from last pm per history. This is her 2nd occurrence and is scheduled on 10/09 for evaluation of possible stricture. I will only plan to remove the impaction and not attempt a balloon dilation today due to the prolonged time of impaction and increased risk of perforation. Her questions were answered and she provided signed consent. We will proceed directly to the OR. Time Spent: < 30 min Venous Thromboembolism VTE Risk Physician Assess for VTE Risk: Yes Patient's VTE Risk: Low VTE Diagnostic Test 2 Days Prior to Admit: No Antithrombotics Is Pt On Any Antithrombotics?: No CIERRA CHRIS MD Sep 26, 2018 10:56
--- NOTE | 2018-09-26 11:49 | Post Operative Note ---
Operative Note - ENT Operative Day Date: Sep 26, 2018 Time: 11:43 Physicians Surgeon: Cierra Reza MD, FACS Anesthesia: GETA Diagnosis Pre-Op Diagnosis: Esophageal Impaction Post-Op Diagnosis: Same Procedure Findings: Large piece of steak in distal esophagus. No obvious stricture seen. Stomach empty with no imflammation. Procedure(s): Esophagoscopy with foreign body extraction Description: She was moved to the endoscopy room. Anesthesia induced and intubated. Time-out performed. Scope passed easily into the esophagus. Large foreign body consistent with seen in the distal esophagus. Removed on first attempt with snare. Scope passed back into esophagus. No clear stenosis seen. No erosion. Stomach empty with no inflammation. Extubated and to PACU in good condition. Discharge to home with follow-up 10/09. Specimen Removed:(Maybe N/A): Foreign Body, not sent to pathology Complications: None Fluids Fluids: 400 Estimated Blood Loss: None CIERRA REZA MD Sep 26, 2018 11:49
== END ==
LOC: ER 09:35 → OR 10:30
PROVIDERS: ATTEND Surgery
DX: K22.2 Esophageal obstruction (principal)
CPT/HCPCS: 43247; 70360; 71045; 81025; 85025; 96365; 96368; 96375; 99284; J2405; J3490; J7030; 82040; 82247; 82310; 82374; 82435; 82565; 82947; 84075; 84132; 84155; 84295; 84450; 84460; 84520

== ENCOUNTER 2018-10-24 00:24 | Day surgery (SDC) | payer MEDICAID, OTHER ==
[2018-06-20 06:07] VITALS: Ht 160 cm; Wt 71.7 kg
[2018-10-24] VITALS (12 sets, daily range): BP systolic 94–106; BP diastolic 48–79
[~2018-10-24] VITALS: Ht 160 cm; Wt 71.7 kg
[~2018-10-24 00:24] MED LIST changes: -FAMOTIDINE(*) 20MG/50ML PREMIX 50 ML IVPB ONE; +GARL10004 PO; -NORMOSOL R SOLN(*) 1000 ML BAG 1,000 ML IV ONE; -NS(*) 0.9% 1000 ML BAG 1,000 ML IV ONE; -ONDANSETRON 4 MG/2 ML VIAL IVP ONE
[2018-10-24] MEDS ORDERED: KETAMINE HCL 200 MG/20 ML MDV ONE (07:11)
[2018-10-24] MEDS ORDERED: LIDOCAINE MPF 1% 5 ML VIAL ONE (07:35)
[2018-10-24] MEDS ORDERED: PROPOFOL EMUL(*) 10MG/ML 20 ML 20 ML ONE (07:35)
[2018-10-24] MEDS ORDERED: LIDOCAINE/SOD BICARB 8.4% SYR ID ONE (09:00)
[2018-10-24] MEDS ORDERED: NORMOSOL R SOLN(*) 1000 ML BAG 1,000 ML IV PRN (09:00)
--- NOTE | 2018-10-24 10:15 | Short(Outpt) Discharge Summary ---
Discharge Summary Reason for Hosp/Final Diag: (1) Dysphagia Status: Chronic Hospital Course & Plan: 33 yo f with dysphagia. underwent egd with bx and dilation. she tolerated the procedure well. path pending. Departure Discharge to: Home Discharge Instructions Home Meds Active Scripts Pantoprazole Sodium (PANTOPRAZOLE SODIUM) 20 Mg Tablet.dr, 1 TAB PO QDAY, #60 TAB.SR 3 Refills Prov:JOSE LO MD 04/23/18 Reported Medications Garlic (GARLIC OIL) 1,000 Mg Capsule, 1000 MG PO, CAPSULE 10/09/18 Albuterol Sulfate (VENTOLIN HFA) 18 Gm Inh, 1-2 PUFF INH 3-4XD PRN for DYSPNEA, INH 04/02/18 Vit W-Ca,Fe,FA(<1 mg) ( Formula) 1 Each Tablet, 1 TAB PO QDAY 04/02/18 Diet: Regular Activity: As Tolerated Special Instructions: continue pantoprazole we will call you in 7-10 days with biopsy results HANK PARNELL Oct 24, 2018 10:15
== END 2018-10-24 13:50 | disposition home or self-care (01) ==
LOC: OR 00:24
PROVIDERS: ATTEND Surgery
DX: K20.9 Esophagitis, unspecified (principal); K29.70 Gastritis, unspecified, without bleeding
CPT/HCPCS: 43239; 43249; 81025; 87077; 88305; 88313; 88344; C1726; J2001; J2704; J3490

== ENCOUNTER → 2018-12-05 | Outpatient (CLI) | payer MEDICAID ==
[2018-06-20 06:07] VITALS: BMI 31.9
[~2018-12-05] MED LIST changes: +RANI-366 PO
== END ==
LOC: LAB 09:10
PROVIDERS: ATTEND Otolaryngology
DX: Z91.018 Allergy to other foods (principal)
CPT/HCPCS: 36415; 82784; 83516; 86003